=== PATIENT | male | born 1935 | race Hispanic/Latino ===

== ENCOUNTER 2017-10-25 10:23 | Observation (INO) | payer OTHER ==
[2017-10-23 10:10] LABS: BASOPHILS % (AUTO) 0.9 % (0.0-5.0); EOSINOPHILS % (AUTO) 8.3 % (0.0-8.0); HEMATOCRIT 35.9 % (42-54); LYMPHOCYTES % (AUTO) 24.3 % (21.0-51.0); MEAN CORPUSCULAR HEMOGLOBIN 26.6 pg (27.0-33.0); MEAN CORPUSCULAR HGB CONC 33.4 g/dL (32.0-36.0); MEAN CORPUSCULAR VOLUME 79.5 fL (79-99); NEUTROPHILS % (AUTO) 52.5 % (40.0-77.0); PLATELET COUNT (AUTO) 272 K/uL (130-400); RED BLOOD CELL COUNT(AUTO) 4.52 MIL/uL (4.50-6.20); RED CELL DISTRIBUTION WIDTH 18.9 % (11.0-15.5); WHITE BLOOD COUNT (AUTO) 6.7 K/uL (4.8-10.8)
[2017-10-23 10:16] LABS: CREATININE 1.6 mg/dL (0.5-1.5); POTASSIUM 4.5 mmol/L (3.5-5.1)
[2017-10-23 10:24] VITALS: BP 156/71
[2017-10-23 10:29] LABS: INR 1.01 (0.85-1.15); PARTIAL THROMBOPLASTIN TIME 24.8 SEC (26.3-35.5); PROTHROMBIN TIME 10.6 SEC (9.6-11.6)
[2017-10-25] VITALS (13 sets, daily range): BP systolic 113–155; BP diastolic 52–74
[~2017-10-25] VITALS: Ht 170.2 cm; Wt 79.8 kg
[~2017-10-25 10:23] MED LIST: AMLO5TAB2 PO; CEFAZOLIN SODIUM 1 GM VIAL IVP SCH; CITA-107 PO; CLOP75TA32 PO; FENO145T37 PO; FINA5TAB41 PO; ISOS30TA6 PO; LISI-613 PO; METF500T6 PO; METO-391 PO; NITR0.4T50 SL; PANT40TA25 PO; ROSU40TA20 PO; SITA50TA PO; SODIUM CHLORIDE 0.9% 1000ML 1,000 ML IV SCH; TAMS0.4C32 PO
[2017-10-25] MEDS ORDERED: BUPIVACAINE/PF 0.25% 30ML VIAL IJ ONE (12:31)
[2017-10-25] MEDS ORDERED: LIDOCAINE HCL 1% MDV 50ML VIAL ONE (12:31)
[2017-10-25] MEDS ORDERED: CEFAZOLIN SODIUM 1 GM VIAL ONE (12:31)
[2017-10-25] MEDS ORDERED: MEPERIDINE-PF 25 MG/ML SYG ONE ×3 (13:10→13:56)
[2017-10-25] MEDS ORDERED: MIDAZOLAM HCL 1 MG/ML 2ML VIAL ONE ×2 (13:11→13:56)
[2017-10-25] MEDS ORDERED: ACETAMINOPHEN 325 MG TAB PO PRN (14:30)
[2017-10-25] MEDS ORDERED: ONDANSETRON HCL 4 MG/2 ML VIAL IV PRN (14:30)
[2017-10-25] MEDS ORDERED: TEMAZEPAM 30 MG CAP PO PRN (14:30)
[2017-10-25] MEDS ORDERED: ACETAMINOPHEN-CODEINE 300/30MG TAB PO PRN ×2 (14:30)
[2017-10-25] MEDS ORDERED: NITROGLYCERIN 0.4 MG SL TAB SL PRN (14:30)
[2017-10-25] MEDS ORDERED: DiphenhydrAMINE HCL 50 MG/ML VIAL ONE (14:34)
[2017-10-25] MEDS ORDERED: METHYLPREDNISOLONE SOD SUCC 125MG/2ML VIAL ONE (14:35)
[2017-10-25] MEDS ORDERED: FLUMAZENIL 0.1MG/1ML 5ML VIAL IV ONE (14:40)
[2017-10-25] MEDS: METFORMIN HCL 500 MG TABLET PO SCH (20:31)
[2017-10-25] MEDS: METOPROLOL TARTRATE 25 MG TAB PO SCH (20:32)
[2017-10-25] MEDS ORDERED: ATORVASTATIN CALCIUM 40 MG TABLET PO SCH (21:00)
[2017-10-25] MEDS ORDERED: FINASTERIDE 5 MG TABLET PO SCH (21:00)
[2017-10-25] MEDS ORDERED: CITALOPRAM 20 MG TABLET PO SCH (21:00)
[2017-10-25] MEDS ORDERED: TAMSULOSIN HCL 0.4 MG CAP.ER.24H PO SCH (21:00)
[2017-10-25] MEDS ORDERED: AMLODIPINE BESYLATE 5 MG TAB PO SCH (21:00)
[2017-10-26 03:04] VITALS: BP 141/70
[2017-10-26 04:47] LABS: CREATININE 1.5 mg/dL (0.5-1.5)
[2017-10-26] MEDS ORDERED: INSULIN HUMULIN R 100 UNIT/ML 3ML SQ SCH (07:30)
[2017-10-26 08:00] VITALS: BP 157/84
[2017-10-26] MEDS ORDERED: PANTOPRAZOLE SODIUM 40 MG TABLET.DR PO SCH (09:00)
[2017-10-26] MEDS ORDERED: FENOFIBRATE NANOCRYSTALLIZED 145 MG TAB PO SCH (09:00)
[2017-10-26] MEDS ORDERED: CLOPIDOGREL BISULFATE 75 MG TAB PO SCH (09:00)
[2017-10-26] MEDS ORDERED: LISINOPRIL 20 MG TABLET PO SCH (09:00)
[2017-10-26] MEDS ORDERED: ISOSORBIDE MONO 30MG TAB SR PO SCH (09:00)
[2017-10-26] MEDS ORDERED: LINAGLIPTIN 5 MG TABLET PO SCH (09:00)
[2017-10-26] MEDS: METFORMIN HCL 500 MG TABLET PO SCH (09:23)
[2017-10-26] MEDS: METOPROLOL TARTRATE 25 MG TAB PO SCH (09:24)
[2017-10-26 11:25] VITALS: BP 149/80
== END 2017-10-26 14:10 | disposition home or self-care (01) ==
LOC: DAH 10:23 → SUH 10:23 → 2DH 10:24 → SUH 10:24
PROVIDERS: ADMIT Internal Medicine; ATTEND Internal Medicine
DX: I49.5 Sick sinus syndrome (principal); I12.9 Hypertensive chronic kidney disease with stage 1 through stage 4 chronic kidney disease, or unspecified chronic kidney disease; E11.22 Type 2 diabetes mellitus with diabetic chronic kidney disease; N18.9 Chronic kidney disease, unspecified; N17.9 Acute kidney failure, unspecified; E78.5 Hyperlipidemia, unspecified; I25.10 Atherosclerotic heart disease of native coronary artery without angina pectoris; N40.0 Benign prostatic hyperplasia without lower urinary tract symptoms; Z95.0 Presence of cardiac pacemaker; Z95.1 Presence of aortocoronary bypass graft; Z95.5 Presence of coronary angioplasty implant and graft; Z82.49 Family history of ischemic heart disease and other diseases of the circulatory system
CPT/HCPCS: 33208; 36415 ×2; 71045; 80048 ×2; 82948 ×3; 85025; 85610; 85730; 93005; 96372; C1785; C1898 ×2; G0378 ×28; J0690; J1200; J2175 ×3; J2250 ×2; J2930; J3490 ×3; 99152; 99153